=== PATIENT | male | born 1955 | race Caucasian/White ===

== ENCOUNTER 2020-12-24 19:52 | Emergency (ER) | payer OTHER, MEDICAID, SELFPAY ==
[~2020-12-24] VITALS: Ht 165.1 cm; Wt 45.4 kg
[2020-12-24 19:55] VITALS: BP_SYST 107
[2020-12-24 20:53] LABS: BASOPHILS # (AUTO) 0.1 K/uL (0.0-0.2); BASOPHILS % (AUTO) 0.6 % (0.0-2.0); EOSINOPHILS % (AUTO) 0.1 % (0.0-4.0); MEAN CORPUSCULAR HGB CONC 34 % (32-36); RED BLOOD CELL COUNT(AUTO) 4.47 MIL/uL (4.2-6.2); WHITE BLOOD COUNT (AUTO) 17.8 K/uL (4.8-10.8)
[2020-12-24 20:58] LABS: HEMATOCRIT 43.5 % (36-54); HEMOGLOBIN 14.8 g/dL (14.0-18.0); LYMPHOCYTES # (AUTO) 1.2 K/uL (1.0-5.5); LYMPHOCYTES % (AUTO) 6.7 % (20.5-51.5); MEAN CORPUSCULAR HEMOGLOBIN 33 pg (27-31); MEAN CORPUSCULAR VOLUME 97 fL (79.0-98.0); MONOCYTES # (AUTO) 1.2 K/uL (0.0-1.0); MONOCYTES % (AUTO) 6.5 % (1.7-9.3); NEUTROPHILS # (AUTO) 15.3 K/uL (1.8-7.7); NEUTROPHILS % (AUTO) 86.1 % (40.0-70.0); PLATELET COUNT (AUTO) 243 K/uL (130-430)
[2020-12-24 21:06] LABS: ANION GAP 10 (5-15); CALCIUM 10.8 mg/dL (8.4-11.0); CHLORIDE 90 mmol/L (98-107); CREATININE 0.84 mg/dL (0.55-1.30); GFR AFRICAN AMERICAN 119 mL/min (>90); GLUCOSE 107 mg/dL (70-99); POTASSIUM 4.7 mmol/L (3.5-5.1); SODIUM SERUM 126 mmol/L (136-145); UREA NITROGEN, BLOOD 31 mg/dL (8-21)
[2020-12-24 21:22] LABS: INR 3.5 (0.80-1.20)
[2020-12-24 21:24] LABS: PROTHROMBIN TIME 34.7 SECS (9.5-12.5)
[2020-12-24 21:25] LABS: TOTAL BILIRUBIN 19.6 mg/dL (0.0-1.0)
[2020-12-24 21:26] LABS: ALANINE AMINOTRANSFERASE 36 U/L (12-78); ALBUMIN 1.9 g/dL (3.4-4.8); ASPARTATE AMINOTRANSFERASE 86 U/L (10-37)
[2020-12-24 21:28] LABS: ALCOHOL, BLOOD < 3 mg/dL (<10); FREE T4 (FREE THYROXINE) 1.2 ng/dL (0.6-1.6); THYROID STIMULATING HORMONE 1.65 uIu/mL (0.34-4.82)
[2020-12-24] MEDS ORDERED: PIPERACILLIN/TAZO 3.375 GM in NS 50 ML IV ONE (21:45)
[2020-12-24] MEDS ORDERED: PIPERACILLIN/TAZOBACTAM 3.375 GM/VIAL (ZOSYN) IV ONE (22:14)
[2020-12-24] MEDS ORDERED: NACL 0.9% 1,000 ML IV ONE (22:15)
[2020-12-25 00:20] VITALS: BP_SYST 110
== END 2020-12-25 00:20 | disposition short-term general hospital (02) ==
LOC: SED 19:52
DX: R62.7 Adult failure to thrive (principal); E87.1 Hypo-osmolality and hyponatremia; J44.9 Chronic obstructive pulmonary disease, unspecified; K72.90 Hepatic failure, unspecified without coma; F17.200 Nicotine dependence, unspecified, uncomplicated; Z20.822 Contact with and (suspected) exposure to COVID-19
CPT/HCPCS: 36415; 71045; 80053; 82140; 82550; 84439; 84443; 84484; 85025; 85610; 85730; 87040; 87426; 93005; 96360; 99285; G0482; J2543; J7030